=== PATIENT | male | born 2000 | race Caucasian/White ===

== ENCOUNTER 2025-06-19 23:12 | Emergency (ER) | payer BC ==
[~2025-06-19] VITALS: Ht 170.2 cm; Wt 77.1 kg
[2025-06-19 23:19] VITALS: BP 104/66
[2025-06-19 23:40] VITALS: BP 108/70; O2SAT 96
== END 2025-06-19 23:40 | disposition home or self-care (01) ==
LOC: ER 23:25
DX: S00.81XA Abrasion of other part of head, initial encounter (principal); J45.909 Unspecified asthma, uncomplicated; F12.90 Cannabis use, unspecified, uncomplicated; Z88.2 Allergy status to sulfonamides; Z88.7 Allergy status to serum and vaccine; W22.09XA Striking against other stationary object, initial encounter; Y93.89 Activity, other specified; Y92.89 Other specified places as the place of occurrence of the external cause; Y99.9 Unspecified external cause status
CPT/HCPCS: A4606; A4663